=== PATIENT | male | born 1990 | race Caucasian/White ===

== ENCOUNTER 2022-01-13 17:46 | Emergency (ER) | payer SELFPAY ==
[~2022-01-13] VITALS: Ht 172.7 cm; Wt 90.7 kg
--- NOTE | 2022-01-13 18:07 | NUR ---
called for triage, no answer
--- NOTE | 2022-01-13 18:17 | NUR ---
called for triage, no answer
--- NOTE | 2022-01-13 18:27 | NUR ---
called for triage, no answer
--- NOTE | 2022-01-13 18:42 | NUR ---
Patient was eventually seen outside ER waiting room. Patient was escorted to triage area for triage purposes. Pressure dressing to R fingers was done, bleeding controlled.
--- NOTE | 2022-01-13 18:53 | NUR ---
Dr [email or web address] in the ER hallway with the patient.
--- NOTE | 2022-01-13 18:54 | NUR ---
SBAR to cocoa powder mixer operator Adrian accordingly.
--- NOTE | 2022-01-14 02:40 | NUR ---
PLACED IN 5B AT THIS TIME DUE TO NO BEDS AVAQILABLE IN THE ER AND HOLDING ICU IN ROOM 3.
[2022-01-14] MEDS ORDERED: LIDOCAINE HCL 1% 20 ML VIAL ONE (03:08)
[2022-01-14] MEDS ORDERED: LIDOCAINE HCL 1% 20 ML VIAL IJ ONE (03:45)
[2022-01-14 04:17] VITALS: BP 110/77
--- NOTE | 2022-01-14 04:17 | NUR ---
Patient discharged to home in stable condition. Written and verbal after care instructions given. Patient verbalizes understanding of instructions. Stressed follow up or return to ER for worsening s/s.
== END 2022-01-14 04:18 | disposition home or self-care (01) ==
LOC: ER 17:48
DX: S61.214A Laceration without foreign body of right ring finger without damage to nail, initial encounter (principal); W26.0XXA Contact with knife, initial encounter; Y93.G1 Activity, food preparation and clean up; Y92.010 Kitchen of single-family (private) house as the place of occurrence of the external cause
CPT/HCPCS: 12001; 99282; J3490

== ENCOUNTER 2022-01-26 21:42 | Emergency (ER) | payer SELFPAY ==
[~2022-01-26] VITALS: Ht 172.7 cm; Wt 90.7 kg
--- NOTE | 2022-01-26 22:20 | NUR ---
Dr. Shaffer at bedside for MSE.
--- NOTE | 2022-01-26 22:32 | NUR ---
Patient discharged to home in stable condition. Written and verbal after care instructions given. Patient verbalizes understanding of instructions. Stressed follow up or return to ER for worsening s/s. Got 3 sutures removed and vitals were stable with no signs of distress, took and his belongings. -MARIA M
[2022-01-26 22:34] VITALS: BP 113/72
== END 2022-01-26 22:39 | disposition home or self-care (01) ==
LOC: ER 21:45
DX: S61.411D Laceration without foreign body of right hand, subsequent encounter (principal); W45.8XXD Other foreign body or object entering through skin, subsequent encounter
CPT/HCPCS: A4663